=== PATIENT | female | born 1955 | race Caucasian/White ===

== ENCOUNTER 2018-09-20 09:03 | Outpatient (CLI) | payer OTHER | END 2018-09-20 09:05 | disposition home or self-care (01) | LOC: SONOGRAMA 09:03 | DX: E04.1 Nontoxic single thyroid nodule (principal) ==

== ENCOUNTER 2019-03-09 07:37 | Outpatient (CLI) | payer OTHER | END 2019-03-09 07:39 | disposition home or self-care (01) | LOC: SONOGRAMA 07:37 | DX: E04.1 Nontoxic single thyroid nodule (principal) ==